=== PATIENT | female | born 1990 | race Caucasian/White ===

== ENCOUNTER 2023-09-11 04:04 | Observation (INO) | payer SELFPAY ==
[2023-09-11] MEDS ORDERED: Ondansetron ODT 4 MG TAB PO PRN (06:23)
[2023-09-11] MEDS ORDERED: Acetaminophen 325 MG TAB PO PRN (06:23)
[2023-09-11] MEDS ORDERED: Ondansetron PF 4 MG/2 ML Vial IVP PRN (06:23)
[2023-09-11] MEDS ORDERED: Piperacillin/Tazobactam 3.375 GM in Sodium Chloride 0.9% 100 ML IVPB SCH ×2 (07:15→09:00)
[2023-09-11] MEDS: busPIRone HCl 10 MG TAB PO SCH ×2 (08:05→20:11)
[2023-09-11] MEDS: Famotidine 20 MG TAB PO SCH ×2 (08:05→20:07)
[2023-09-11] MEDS: Famotidine/PF 20 mg/2ml Vial SLOW IVP SCH ×2 (08:22→20:11)
[2023-09-11 08:25] VITALS: BMI 28.3
[2023-09-11] MEDS ORDERED: Sodium Chloride 0.9% 1,000 ML IV SCH (09:30)
[2023-09-11] MEDS ORDERED: SUMAtriptan Succinate 50 MG TAB PO SCH (10:00)
[2023-09-11] MEDS: Piperacillin/Tazobactam 3.375 GM in Sodium Chloride 0.9% 100 ML IVPB SCH ×2 (11:38→20:10)
[2023-09-11 11:46] LABS: Amphetamine Detected (NotDetected); Barbiturates Screen Not Detected (NotDetected); Benzodiazepine Screen Not Detected (NotDetected); Cocaine Metabolite Screen Not Detected (NotDetected); Methadone Not Detected (NotDetected); Methamphetamine Not Detected (NotDetected); Opiate Screen Detected (NotDetected); Oxycodone Screen Not Detected (NotDetected); Phencyclidine (PCP) Not Detected (NotDetected); THC/Cannabinoid Screen Not Detected (NotDetected); Tricyclic Screen Not Detected (NotDetected)
[2023-09-11 13:17] LABS: #Eosinphils 0.4 thou/uL (0.0-0.7); #Monocytes 0.5 thou/uL (0.11-0.59); #Neutrophils 2.3 thou/uL (1.40-6.50); %Basophils 0.4 % (0.0-1.0); %Eosinophils 7.2 % (0.0-10.0); %Lymphocytes 32.9 % (21.0-51.0); %Neutrophils 48.3 % (42.0-75.0); Hematocrit 35.4 % (36.0-47.0); Hemoglobin 11.5 g/dL (12.0-16.0); Mean Corpuscular HGB CONC 32.5 g/dL (32.0-36.0); Mean Corpuscular Hemoglobin 29.2 pg (27.0-31.0); Mean Corpuscular Volume 89.8 fl (78.0-98.0); Mean Platelet Volume 9.4 fL (7.4-10.4); Platelet Count 218 10x3/uL (130-400); RBC Distribution Width 12.8 % (11.5-14.5); Red Blood Cell (RBC) Count 3.94 mill/uL (4.20-5.40); White Blood Cell (WBC) Count 4.8 10x3/uL (4.8-10.8)
[2023-09-11 13:39] LABS: ALT (SGPT) 317 U/L (8-55); AST (SGOT) 202 U/L (5-34); Alkaline Phosphatase 136 U/L (40-110); Anion Gap 11 mmol/L (10-20); BUN (Urea Nitrogen) 6 mg/dL (7.0-18.7); Bilirubin, Total 2.5 mg/dL (0.2-1.2); Calc. Creatinine Clearance 142 mL/min (70-130); Carbon Dioxide 23 mmol/L (22-29); Chloride 106 mmol/L (98-107); Estimated GFR 121; Globulin 2.7 g/dL (2.4-3.5); Glucose 90 mg/dL (70-105); Lipase 10 U/L (8-78); Magnesium 1.6 mg/dL (1.6-2.6); Protein, Total 6.7 g/dL (6.0-8.3); Sodium 137 mmol/L (136-145)
[2023-09-11 13:42] LABS: BHCG - Serum Negative (NEGATIVE); Pregs Control Background? CLEAR/WHITE (CLR/WHITE); Pregs Control Bar Appear? YES (CONTROL BAR)
[2023-09-11 13:45] LABS: MONO NEGATIVE CONTROL ZONE White (Negative) (White); MONO POSITIVE CONTROL Pink Line (Positive) (PINK/RED); Mononucleosis NEGATIVE (NEGATIVE)
[2023-09-11 13:50] LABS: Acetaminophen Less than 10 mcg/mL (10.0-30.0); Alcohol Less than 10.0 mg/dL (Less than 10); Salicylate Less than 8.0 mg/dL (15.0-30.0)
[2023-09-11 13:58] LABS: INR-International Normal Ratio 1.3; PTT 30.2 sec (22.9-36.1); Prothrombin Time 16.4 sec (12.0-14.7)
[2023-09-11 14:14] LABS: HBCM Index 0.09 S/CO (0-0.79); HBSAg Index 0.19 S/CO (0-0.99); HIV (1/2) Antibody/Antigen Non-Reactive (NonReactive); Hep A IgM AB Non-Reactive S/CO (NonReactive); Hep A IgM S/CO 0.14 S/CO (0-0.79); Hep B Surf Ag Non-Reactive S/CO (NonReactive); Hep C IgG Ab Non-Reactive S/CO (NonReactive); Hep C Index 0.06 S/CO (0-0.79); Hepatitis B Core IgM Abs Non-Reactive S/CO (NonReactive)
[2023-09-11 14:15] LABS: HIV 1/2 INDEX 0.26 S/CO (<1.00)
[2023-09-11] MEDS ORDERED: Electrolyte Replacement Protocol 1 EACH FS SCH (14:15)
[2023-09-11] MEDS: Ketorolac Tromethamine 30 MG (1 mL) VIAL IVP PRN ×2 (17:06→23:31)
[2023-09-11] MEDS: Potassium Chloride 20 MEQ in Premix 1 BAG IVPB SCH ×2 (17:07→17:49)
[2023-09-11] MEDS: Lactated Ringer's 1,000 ML IV SCH (17:07)
[2023-09-11] MEDS ORDERED: Potassium Chloride 20 MEQ TAB PO SCH (17:45)
[2023-09-12] MEDS: Lactated Ringer's 1,000 ML IV SCH ×2 (02:07→08:25)
[2023-09-12] MEDS: Piperacillin/Tazobactam 3.375 GM in Sodium Chloride 0.9% 100 ML IVPB SCH (03:49)
[2023-09-12] MEDS ORDERED: traMADol HCl 50 MG TAB PO PRN (07:33)
[2023-09-12] MEDS ORDERED: PROPOFOL 20 ML ONE (07:57)
[2023-09-12] MEDS ORDERED: Midazolam HCl 2 mg/2 ml Vial ONE (07:57)
[2023-09-12] MEDS ORDERED: Rocuronium Bromide 10 MG/ML (10ML VIAL) ONE (07:58)
[2023-09-12] MEDS ORDERED: Lidocaine 1% PF 5 ML VIAL ONE (07:58)
[2023-09-12] MEDS ORDERED: SUGAMMADEX SODIUM 200 MG/2 ML VIAL ONE (07:58)
[2023-09-12] MEDS ORDERED: Ondansetron PF 4 MG/2 ML Vial ONE ×2 (07:58→10:13)
[2023-09-12] MEDS ORDERED: Dexamethasone 4 mg/ml Vial ONE (07:58)
[2023-09-12] MEDS ORDERED: Ketorolac Tromethamine 30 MG (1 mL) VIAL IVP SCH ×2 (08:00→15:00)
[2023-09-12] MEDS: Famotidine/PF 20 mg/2ml Vial SLOW IVP SCH (08:01)
[2023-09-12] MEDS: Famotidine 20 MG TAB PO SCH (08:01)
[2023-09-12] MEDS: Acetaminophen 500 MG TAB PO SCH ×2 (08:01→13:15)
[2023-09-12] MEDS ORDERED: fentaNYL PF 100 MCG/2 ML SYRINGE ONE (08:07)
[2023-09-12 08:08] VITALS: TEMP 97.8
[2023-09-12] MEDS ORDERED: Bupivacaine PF 0.5% 30 ML VIAL ONE (08:11)
[2023-09-12] MEDS ORDERED: EPINEPHrine 1 MG/ML VIAL ONE (08:11)
[2023-09-12] MEDS ORDERED: Glucagon 1 MG/ML KIT ONE (08:35)
[2023-09-12] MEDS ORDERED: Iopamidol 30 ML ONE (08:36)
[2023-09-12] MEDS ORDERED: fentaNYL 50 mcg/mL 1 mL Vial ONE ×4 (09:09→10:33)
[2023-09-12] MEDS: busPIRone HCl 10 MG TAB PO SCH (09:22)
[2023-09-12] MEDS ORDERED: Promethazine HCl 25 MG/ML VIAL IM PRN (09:25)
[2023-09-12] MEDS ORDERED: Ondansetron HCl/PF 4 MG/2 ML Vial IVP PRN (09:25)
[2023-09-12] MEDS ORDERED: Cyclobenzaprine 10 MG TAB PO PRN (10:08)
[2023-09-12] MEDS ORDERED: SUMAtriptan Succinate 50 MG TAB PO PRN (10:08)
[2023-09-12 12:05] VITALS: BP 120/76
[2023-09-12] MEDS ORDERED: Ibuprofen 600 MG TAB PO PRN (12:33)
[2023-09-12] MEDS ORDERED: Dextroamphetamine/Amphetamine [Adderall] 30 MG Tablet PO SCH (21:00)
== END 2023-09-12 15:22 | disposition home or self-care (01) ==
LOC: T4-B 06:23
PROVIDERS: ADMIT Student in an Organized Health Care Education/Training Program; ATTEND Family Medicine
PROC: 0FT44ZZ Resection of Gallbladder, Percutaneous Endoscopic Approach (ICD-10-PCS; principal; 2023-09-12)
PROC: BF03YZZ Plain Radiography of Gallbladder and Bile Ducts using Other Contrast (ICD-10-PCS; 2023-09-12)
DX: K80.12 Calculus of gallbladder with acute and chronic cholecystitis without obstruction (principal); E87.5 Hyperkalemia; E80.7 Disorder of bilirubin metabolism, unspecified; N20.0 Calculus of kidney; D73.89 Other diseases of spleen; G43.909 Migraine, unspecified, not intractable, without status migrainosus; J02.9 Acute pharyngitis, unspecified; F90.9 Attention-deficit hyperactivity disorder, unspecified type; R74.01 Elevation of levels of liver transaminase levels; R06.02 Shortness of breath; Z88.5 Allergy status to narcotic agent; Z88.1 Allergy status to other antibiotic agents; Z88.8 Allergy status to other drugs, medicaments and biological substances; Z79.899 Other long term (current) drug therapy; Z98.890 Other specified postprocedural states
CPT/HCPCS: 36415; 47532; 71045; 74181; 76705; 80053; 80074; 80306; 80307; 83690; 83735; 84703; 85025; 85610; 85730; 86308; 86850; 86900; 86901; 87389; 88304; 93005; 93010; 96365; 96366; 96375; 96376; C1889; G0378; J0171; J1100; J1611; J1885; J2250; J2405; J2543; J2704; J3010; J3480; J3490; J7050; J7120; Q9967; S0020; S0028